=== PATIENT | female | born 1960 | race Caucasian/White ===

== ENCOUNTER 2020-08-28 13:16 | Outpatient (CLI) | payer OTHER | END 2020-08-28 23:59 | disposition home or self-care (01) | LOC: CVU 13:16 → EDSTATUS 14:00 → CVU 23:59 | PROVIDERS: ATTEND Internal Medicine Cardiovascular Disease | DX: I48.91 Unspecified atrial fibrillation (principal) | CPT/HCPCS: 93306; 93356 ==

== ENCOUNTER → 2020-10-19 | Day surgery (SDC) | payer OTHER ==
[~2020-10-19] VITALS: Ht 170.2 cm; Wt 79.5 kg
[~2020-10-19] MED LIST: ASPI-963 PO; ASPIRIN 81 MG TABLET EC PO SCH; ATOR40TA78 PO; ATORVASTATIN 40 MG TABLET PO SCH; CETI-237 PO; CETIRIZINE 1 MG/ML ORAL SOL PO SCH; FENTANYL PF 100 MCG/2ML ONE; FERR89TA PO; ISOPROTERENOL 0.2MG/ML, 5ML ONE; LIDOCAINE 1%, 20ML ONE; LISI-167 PO; LISINOPRIL 10 MG TABLET PO SCH; MIDAZOLAM 1 MG/ML, 5ML ONE; MULTIVITAMIN; PROP20TA PO; PROP40TA PO; SENN1TAB67 PO; SENNA/DOCUSATE TABLET PO SCH; SODIUM CHLORIDE 0.9% 1,000 ML IV SCH
[2020-10-19 09:08] VITALS: BP 151/81
[2020-10-19 09:48] LABS: BASOPHILS % (AUTO) 1 % (0-1); EOSINOPHILS % (AUTO) 2 % (1-7); LYMPHOCYTES % (AUTO) 29 % (22-44); MEAN CORPUSCULAR HEMOGLOBIN 30.7 pg (27.0-34.8); MEAN CORPUSCULAR HGB CONC 34.5 g/dL (32.4-35.8); MEAN PLATELET VOLUME 8.5 fL (7.4-10.4); MONOCYTES % (AUTO) 7 % (2-9); NEUTROPHILS % (AUTO) 61 % (42-75); PLATELET COUNT 190 x10^3/uL (130-400); RED BLOOD COUNT 4.91 x10^6/uL (3.82-5.3); RED CELL DISTRIBUTION WIDTH 13.5 % (9.6-15.2)
[2020-10-19 09:56] LABS: ALANINE AMINOTRANSFERASE 40 U/L (12-78); ALBUMIN 3.6 g/dL (3.4-5.0); ANION GAP 7 mmol/L (5-15); CALCIUM 9.1 mg/dL (8.5-10.1); CHLORIDE 113 mmol/L (98-107); CREATININE 0.88 mg/dL (0.55-1.02); INTERNATIONAL NORMALIZED RATIO 0.96 (0.93-1.1); PROTHROMBIN TIME 10.3 Seconds (9.6-11.5)
[2020-10-19 10:06] LABS: ALKALINE PHOSPHATASE 103 U/L (45-117); BILIRUBIN,TOTAL 0.3 mg/dL (0.2-1.0); TOTAL PROTEIN 6.6 g/dL (6.4-8.2)
== END | disposition home or self-care (01) ==
LOC: CACL 08:10
PROVIDERS: ATTEND Internal Medicine Cardiovascular Disease
DX: I49.3 Ventricular premature depolarization (principal); I10 Essential (primary) hypertension; Z79.899 Other long term (current) drug therapy; Z79.01 Long term (current) use of anticoagulants
CPT/HCPCS: 36415; 71046; 80053; 84443; 85025; 85610; 85730; 93005; 93623; 93654; 99156; 99157; C1732; C1894; J2250; J3010